=== PATIENT | male | born 1950 | race Caucasian/White ===

== ENCOUNTER 2017-12-15 11:45 | Emergency (ER) | payer OTHER ==
[~2017-12-15] VITALS: Ht 180.3 cm; Wt 69.9 kg
[~2017-12-15 11:45] MED LIST: PERCOT PO; WARF5TAB71 PO
[2017-12-15 12:00] VITALS: BP 135/90
[2017-12-15] MEDS ORDERED: methylPREDNISolone SOD SUCC 125 MG/2 ML VL IM ONE (13:15)
[2017-12-15] MEDS ORDERED: cefTRIAXone SOD 1,000 MG VL IM ONE (13:15)
== END 2017-12-15 13:40 | disposition home or self-care (01) ==
LOC: ER 11:45
DX: J02.9 Acute pharyngitis, unspecified (principal); B37.0 Candidal stomatitis; I25.810 Atherosclerosis of coronary artery bypass graft(s) without angina pectoris; J44.9 Chronic obstructive pulmonary disease, unspecified; E78.5 Hyperlipidemia, unspecified; I10 Essential (primary) hypertension; F17.210 Nicotine dependence, cigarettes, uncomplicated; Z88.5 Allergy status to narcotic agent; Z88.1 Allergy status to other antibiotic agents; Z88.8 Allergy status to other drugs, medicaments and biological substances; Z88.2 Allergy status to sulfonamides; Z79.01 Long term (current) use of anticoagulants; Z79.899 Other long term (current) drug therapy; Z95.1 Presence of aortocoronary bypass graft
CPT/HCPCS: 87070; 87880; 96372; 99284; J0696; J2930

== ENCOUNTER 2019-11-01 13:50 | Inpatient (IN) | payer OTHER ==
[~2019-11-01] VITALS: Ht 177.8 cm; Wt 65.0 kg
[2019-11-01] MEDS ORDERED: IPRATROPIUM BROM 0.5 MG/2.5ML INH SOL HHN ONE (14:15)
[2019-11-01] MEDS ORDERED: ALBUTEROL SULF 2.5 MG/0.5ML(0.5%) NEB SOLN HHN ONE (14:15)
[2019-11-01] MEDS ORDERED: methylPREDNISolone SOD SUCC 125 MG/2 ML VL IV ONE (14:15)
[2019-11-01 14:44] LABS: Basophils # (auto) 0 10 ^3/uL (0-0.2); Basophils % (auto) 0.1 % (0.0-2.0); Eosinophils # (auto) 0 10 ^3/uL (0-0.8); Eosinophils % (auto) 0.1 % (0.0-7.0); Hematocrit 39.5 % (41.0-53.0); Hemoglobin 13.2 g/dL (13.5-17.5); Lymphocytes # (auto) 0.6 10 ^3/uL (0.4-5.4); Lymphocytes % (auto) 6.7 % (10.0-50.0); Mean Corpuscular Hemoglobin 33.1 pg (28.0-32.0); Mean Corpuscular Hgb Conc. 33.5 g/dL (32.0-36.0); Mean Corpuscular Volume 98.8 fL (80.0-100.0); Monocytes # (auto) 0.7 10 ^3/uL (0-1.3); Monocytes % (auto) 7.4 % (0.0-12.0); Neutrophils # (auto) 7.9 10 ^3/uL (1.6-8.6); Neutrophils % (auto) 85.7 % (37.0-80.0); Nucleated Red Blood Cells % 0.1 %; Platelet Count (auto) 283 10^3/uL (140-450); Red Cell Distribution Width 14.9 % (11.8-14.3); White Blood Cell 9.2 10^3/uL (4.4-10.8)
[2019-11-01] MEDS ORDERED: DOXYCYCLINE 100MG/250ML 250 ML IV ONE (14:45)
[2019-11-01 15:24] LABS: Albumin 2.5 g/dL (3.4-5.0); Anion Gap 6 (5-15); Blood Urea Nitrogen 32 mg/dL (7-18); Calcium 8.8 mg/dL (8.5-10.1); Carbon Dioxide 22 mmol/L (21-32); Chloride 107 mmol/L (98-107); Glucose 119 mg/dL (74-106); Magnesium 2.4 mg/dL (1.6-2.6); Potassium 3.9 mmol/L (3.5-5.1); Sodium 135 mmol/L (136-145)
[2019-11-01 15:26] LABS: Lactic Acid w/Reflex 2.6 mmol/L (0.4-2.0)
[2019-11-01 15:30] LABS: Alanine Aminotransferase 22 U/L (16-61); Alkaline Phosphatase 226 U/L (45-117); Aspartate Aminotransferase 18 U/L (15-37); BUN/Creatinine Ratio 22.4; Bilirubin, Total 0.2 mg/dL (0.2-1.0); GFR African American 64 mL/min; GFR Non-African American 53 mL/min; Total Protein 6.6 g/dL (6.4-8.2)
[2019-11-01] MEDS ORDERED: MORPHINE SULF INJ 2 MG/ML SYRINGE 1ML IV PRN ×2 (15:30→17:30)
[2019-11-01] MEDS ORDERED: NITROGLYCERIN 0.4 MG SL TAB SL PRN ×2 (15:30→17:30)
[2019-11-01] MEDS ORDERED: IOHEXOL 350 MG/ML 100ML IJ ONE (16:25)
[2019-11-01] MEDS ORDERED: DOCUSATE SOD 100 MG CAP PO PRN (17:30)
[2019-11-01] MEDS ORDERED: LORazepam 0.5 MG TAB PO PRN (17:30)
[2019-11-01] MEDS ORDERED: ONDANSETRON HCL 4 MG/2 ML VIAL IV PRN (17:30)
[2019-11-01] MEDS ORDERED: ACETAMINOPHEN 325 MG TAB PO PRN (17:30)
[2019-11-01] MEDS ORDERED: VANCOMYCIN PER PHARMACY 0 MG IV SCH (17:30)
[2019-11-01] MEDS ORDERED: ALUM & MAG HYDROX-SIMETH LIQ(MAALOX) 30 ML PO PRN (17:30)
[2019-11-01] MEDS: IPRATROPIUM BROM 0.5 MG/2.5ML INH SOL NEB SCH ×2 (18:00→22:17)
--- NOTE | 2019-11-01 18:20 | NUR ---
Respiratory note: SCHEDULED MED NEB TX HELD AT THIS TIME. PT TO HAVE A BEDSIDE PROCEDURE. WILL RETURN FOR NEXT SCHEDULED MED NEB TX. PT RESTING COMFORTABLY IN BED, WILL CONTINUE TO MONITOR.
[2019-11-01] MEDS: SODIUM CHLORIDE 0.9% 1,000 ML IV SCH (18:21)
[2019-11-01] MEDS ORDERED: MEROPENEM 500MG IVPB 50 ML IV ONE (18:30)
[2019-11-01 18:43] LABS: INR 2.04 (0.9-1.15); Partial Thromboplastin Time 36.7 sec (23.0-31.2)
[2019-11-01 18:57] LABS: Urine Bacteria MOD /hpf (None Seen); Urine Blood 2+ /uL (Negative); Urine Mucus FEW (None Seen); Urine Specific Gravity 1.014 (1.001-1.035); Urine WBC 174 /hpf (0 - 3)
[2019-11-01 18:58] LABS: Amphetamine Screen, Urine NEGATIVE (NEGATIVE); Barbiturate Scree,Urine NEGATIVE (NEGATIVE); Benzodiazephine Screen, Urine NEGATIVE (NEGATIVE); Cannabinoid Screen, Urine NEGATIVE (NEGATIVE); Cocaine Screen, Urine NEGATIVE (NEGATIVE); Opiate Scree,Urine NEGATIVE (NEGATIVE); Phencyclidine Screen, Urine NEGATIVE (NEGATIVE)
[2019-11-01] MEDS ORDERED: VANCOMYCIN 1GM/250ML 250 ML IV ONE (19:00)
[2019-11-01 19:16] LABS: Cholesterol 136 mg/dL (< 200)
[2019-11-01 19:23] LABS: HDL Cholesterol 34 mg/dL (40-59); LDL Cholesterol 89 mg/dL (< 100); Triglycerides 125 mg/dL (< 150)
[2019-11-01] MEDS ORDERED: hydrALAZINE HCL 25 MG TAB PO PRN (19:30)
--- NOTE | 2019-11-01 20:15 | NUR ---
Telemetry admit from RAFITA ZIMMERMAN admitted to Telemetry unit after SBAR received. Patient oriented to ALEXA GRIER RN primary RN, unit, room, bed, and unit policies regarding patient care and visiting hours. Patient now on continuous telemetry monitoring, tele box # 6 and telemetry reading on arrival to unit is Sinus Rhythm at 78BPM. Patient placed on bedside oxygen, weighed by bedscale and encouraged to call if they need something. All questions and concerns addressed, patient verbalized understanding. Patient is alert and oriented, on 2LNC saturating at 92%. Patient requested a sandwich upon arrival to the floor. Patient states he is very weak. Provided patient with ice water, urinal. Bed placed in lowest position, bed alarm turned on and call light within reach.
[2019-11-01] MEDS ORDERED: MEROPENEM 1GM IVPB 100 ML IV ONE (20:58)
[2019-11-01 21:15] VITALS: BP 99/67
[2019-11-01] MEDS: ATORVASTATIN 20 MG TAB PO SCH ×2 (21:53→22:00)
[2019-11-01] MEDS: methylPREDNISolone SOD SUCC 40 MG/ML VL IV SCH (21:53)
[2019-11-01] MEDS: ALBUTEROL SULF 2.5 MG/0.5ML(0.5%) NEB SOLN NEB PRN (22:18)
[2019-11-02] VITALS (8 sets, daily range): BP systolic 99–126; BP diastolic 61–70
[2019-11-02] MEDS: IPRATROPIUM BROM 0.5 MG/2.5ML INH SOL NEB SCH ×6 (01:39→23:25)
--- NOTE | 2019-11-02 04:30 | NUR ---
Photo taken to Sacrum redness. Patient tolerated well
--- NOTE | 2019-11-02 04:47 | NUR ---
In House Covid 19 Swab walked to lab by CORKY Stevens.
[2019-11-02] MEDS: MEROPENEM 1GM IVPB 100 ML IV SCH ×2 (06:20→18:35)
[2019-11-02] MEDS: methylPREDNISolone SOD SUCC 40 MG/ML VL IV SCH ×3 (06:20→22:40)
--- NOTE | 2019-11-02 06:49 | NUR ---
Patient is resting in bed with eyes closed, no distress noted and patient denies pain at this time.
[2019-11-02 07:02] LABS: Basophils # (auto) 0 10 ^3/uL (0-0.2); Basophils % (auto) 0.1 % (0.0-2.0); Eosinophils # (auto) 0 10 ^3/uL (0-0.8); Hematocrit 32.1 % (41.0-53.0); Lymphocytes # (auto) 0.3 10 ^3/uL (0.4-5.4); Lymphocytes % (auto) 4.1 % (10.0-50.0); Mean Corpuscular Hemoglobin 33.5 pg (28.0-32.0); Mean Corpuscular Hgb Conc. 34.2 g/dL (32.0-36.0); Mean Corpuscular Volume 97.7 fL (80.0-100.0); Monocytes # (auto) 0.2 10 ^3/uL (0-1.3); Monocytes % (auto) 2.4 % (0.0-12.0); Neutrophils # (auto) 7.8 10 ^3/uL (1.6-8.6); Neutrophils % (auto) 93.4 % (37.0-80.0); Nucleated Red Blood Cells % 0.1 %; Platelet Count (auto) 227 10^3/uL (140-450); Red Blood Cells 3.28 10^6/uL (4.5-5.90); Red Cell Distribution Width 15.1 % (11.8-14.3); White Blood Cell 8.4 10^3/uL (4.4-10.8)
[2019-11-02 07:11] LABS: INR 2.08 (0.9-1.15)
[2019-11-02 07:20] LABS: BUN/Creatinine Ratio 23.4; Calcium 8.4 mg/dL (8.5-10.1); Potassium 4.1 mmol/L (3.5-5.1)
--- NOTE | 2019-11-02 07:40 | NUR ---
OPENING NOTE ASSUMED CARE OF PT. ALERT AND ORIENTED. NO S/S OF SOB/DISTRESS NOTED. BED SET TO LOWEST POSITION/LOCKED. BEDSIDE RAILS UP X2. BED ALARM ON. CALL LIGHT WITHIN REACH. INSTRUCTED PT TO CALL FOR ASSISTANCE. UPDATED ON POC. WILL CONTINUE TO MONITOR Q1HR AND PRN.
[2019-11-02] MEDS ORDERED: MEROPENEM 500MG IVPB 50 ML IV SCH (10:00)
[2019-11-02] MEDS: SODIUM CHLORIDE 0.9% 1,000 ML IV SCH (10:10)
[2019-11-02] MEDS: HYDROcodone-ACET 5/325MG TAB PO PRN (10:34)
--- NOTE | 2019-11-02 14:09 | NUR ---
REPORT GIVEN AND ENDORSED CARE TO CORKY CLINTON.
--- NOTE | 2019-11-02 14:39 | NUR ---
PATIENT TRANSPORTED TO ROOM 296 A VIA WHEELCHAIR WITH ALL BELONGING.
--- NOTE | 2019-11-02 14:45 | NUR ---
PT ARRIVED IN ROOM 296A FROM COVID UNIT. NO S/S OF DISTRESS OR SOB.
[2019-11-02] MEDS: MORPHINE SULF INJ 2 MG/ML SYRINGE 1ML IV PRN ×2 (15:03→22:48)
[2019-11-02] MEDS ORDERED: IOHEXOL 350 MG/ML 100ML IJ ONE (16:28)
[2019-11-02] MEDS ORDERED: IODIXANOL 320MG/ML 100ML BTL IV ONE (16:44)
--- NOTE | 2019-11-02 18:26 | NUR ---
DAUGHTER WANTS TO SPEAK WITH DR RIKI GARIBAY, REQUESTING MD CALL HER AT [phone]
--- NOTE | 2019-11-02 19:50 | NUR ---
Opening Shift Note Assumed care of patient, awake and alert. No S/S of distress/SOB or pain. Instructed on POC and to call for assist PRN, will continue to monitor for changes Q1hr and PRN.
[2019-11-02] MEDS ORDERED: VANCOMYCIN 750mg/250ml 250 ML IV SCH (21:00)
[2019-11-02] MEDS: ATORVASTATIN 20 MG TAB PO SCH (22:40)
[2019-11-02] MEDS: VANCOMYCIN 750mg/250ml 250 ML IV SCH (23:13)
[2019-11-02] MEDS: ALBUTEROL SULF 2.5 MG/0.5ML(0.5%) NEB SOLN NEB PRN (23:26)
[2019-11-03] MEDS: IPRATROPIUM BROM 0.5 MG/2.5ML INH SOL NEB SCH ×6 (02:00→22:14)
--- NOTE | 2019-11-03 02:27 | NUR ---
AT BEDSIDE FOR MED NEB TX. PT REFUSING TX AT THIS TIME. PT HAD MENTIONED FOR 2200 MED NEB TX POSSIBILITY OF REFUSING 0200 MED NEB TX. NO S/S OF DISTRESS NOTED, WILL CONTINUE TO MONITOR.
[2019-11-03] MEDS: SODIUM CHLORIDE 0.9% 1,000 ML IV SCH ×2 (02:50→20:24)
[2019-11-03 05:00] VITALS: BP 99/60
[2019-11-03] MEDS: MEROPENEM 1GM IVPB 100 ML IV SCH ×3 (05:43→22:45)
[2019-11-03] MEDS: MORPHINE SULF INJ 2 MG/ML SYRINGE 1ML IV PRN ×2 (05:44→20:45)
[2019-11-03] MEDS: methylPREDNISolone SOD SUCC 40 MG/ML VL IV SCH ×3 (05:44→22:46)
[2019-11-03 06:08] LABS: Basophils # (auto) 0 10 ^3/uL (0-0.2); Eosinophils # (auto) 0 10 ^3/uL (0-0.8); Hematocrit 30.3 % (41.0-53.0); Hemoglobin 10.3 g/dL (13.5-17.5); Lymphocytes # (auto) 0.3 10 ^3/uL (0.4-5.4); Mean Corpuscular Hemoglobin 33.4 pg (28.0-32.0); Mean Corpuscular Volume 98.2 fL (80.0-100.0); Monocytes # (auto) 0.3 10 ^3/uL (0-1.3); Monocytes % (auto) 2.3 % (0.0-12.0); Neutrophils # (auto) 13.3 10 ^3/uL (1.6-8.6); Neutrophils % (auto) 95.7 % (37.0-80.0); Platelet Count (auto) 213 10^3/uL (140-450); Red Blood Cells 3.09 10^6/uL (4.5-5.90); Red Cell Distribution Width 14.8 % (11.8-14.3); White Blood Cell 13.9 10^3/uL (4.4-10.8)
--- NOTE | 2019-11-03 08:00 | NUR ---
Opening Shift Note Assumed care of patient, awake and alert and oriented x4. No S/S of distress/SOB. Instructed on POC and to call for assist PRN, will continue to monitor for changes Q1hr and PRN.
[2019-11-03 09:00] VITALS: BP 111/63
--- NOTE | 2019-11-03 09:59 | NUR ---
Respiratory note: ROOM AIR ABG ORDERED BY DR. LYN. SPO2 WAS 95% ON ROOM AIR. ABG NOT DRAWN AT THIS TIME. PT REMAINS OFF O2.
[2019-11-03] MEDS: ALBUTEROL SULF 2.5 MG/0.5ML(0.5%) NEB SOLN NEB PRN ×4 (10:29→22:14)
[2019-11-03] MEDS: HYDROcodone-ACET 5/325MG TAB PO PRN (11:03)
[2019-11-03 13:00] VITALS: BP 111/66
--- NOTE | 2019-11-03 13:32 | NUR ---
ATTEMPTED TO CALL PATHOLOGY FOR REPORT. NO ANSWER AT THIS TIME. WILL ATTEMPT AGAIN.
--- NOTE | 2019-11-03 14:47 | NUR ---
PATIENT STATES THAT HE IS "SHORT OF BREATH AND CAN'T BREATH." RT PAGED FOR TREATMENT. PATIENT CURRENTLY ON 2 LPM NC, O2 SATS 94% AT THIS TIME.
--- NOTE | 2019-11-03 15:00 | NUR ---
PT DECLINED P.T. BECAUSE OF SHORTNESS OF BREATH.
--- NOTE | 2019-11-03 15:07 | NUR ---
SPOKE WITH FAMILY AND UPDATED ON PLAN OF CARE AT THIS TIME.
--- NOTE | 2019-11-03 16:15 | NUR ---
Assessment Patient is a 68-year-old male who is alert and oriented. Prior to admission patient lived home with his Awa and functioned with assistance. Per patient his helps him with his ADLs. Per patient he will return home to his prior living arrangements post discharge and family will transport him home. Advised patient there is a social service consult for home health safety evaluation and nebulizer. Per patient he has a walker, wheelchair and nebulizer for home use. Informed patient he has the right to participate in all discharge planning. Patient verbalized understanding and agreed to discharge plan. Faxed clinical information to [facility]. Per Daisy with [facility] patient has been accepted and service to start within 24-48hrs upon d/c day. Addendum: 11/03/19 at 1616 by JESSIE BALLESTEROS Amended: Links added.
[2019-11-03 17:00] VITALS: BP 104/74
--- NOTE | 2019-11-03 17:49 | NUR ---
PATIENT SLEEPING COMFORTABLY. NO S/S OF DISTRESS AT THIS TIME.
--- NOTE | 2019-11-03 18:51 | NUR ---
End of Shift Pt. resting comfortably, no s/s of distress. Endorsed care to NOC shift nurse.
--- NOTE | 2019-11-03 19:50 | NUR ---
Opening Shift Note Assumed care of patient. Awake, alert and oriented x4. No S/S of distress or pain at this time. Pt is on 3L nasal cannula and says he feels SOB. Pulse ox assessed at 99%. Instructed pt to take things slowly and to call if breathing treatment is needed. Bed locked, in lowest position, call light within reach, side rails up x2. Instructed on POC and to call for assist PRN. Will continue to monitor for changes Q1hr and PRN.
[2019-11-03] MEDS: ATORVASTATIN 20 MG TAB PO SCH (22:00)
[2019-11-03 22:01] VITALS: BP 109/71
[2019-11-03] MEDS: VANCOMYCIN 750mg/250ml 250 ML IV SCH (23:33)
--- NOTE | 2019-11-04 01:49 | NUR ---
Placed call to pathology No answer. Will attempt again at a later time
[2019-11-04] MEDS: IPRATROPIUM BROM 0.5 MG/2.5ML INH SOL NEB SCH ×6 (02:00→23:04)
--- NOTE | 2019-11-04 02:10 | NUR ---
Respiratory note: PT REFUSED MED NEB TX AT THIS TIME STATING HE WANTED TO SLEEP. NO S/S OF ANY DISTRESS NOTED. ADVISED PT TO CALL IF TX IS NEEDED.
[2019-11-04 05:00] VITALS: BP 120/70
[2019-11-04] MEDS: MEROPENEM 1GM IVPB 100 ML IV SCH ×3 (05:59→21:39)
[2019-11-04] MEDS: methylPREDNISolone SOD SUCC 40 MG/ML VL IV SCH ×3 (06:00→21:40)
[2019-11-04] MEDS: HYDROmorphone HCL 2 MG/ML VL IV PRN ×2 (08:30→21:53)
[2019-11-04 08:54] VITALS: BP 109/80
--- NOTE | 2019-11-04 09:30 | NUR ---
PHONED PATHOLOGY AND LEFT MESSAGE TO CALL ME BACK REGARDING CYTOLOGY RESULT.
--- NOTE | 2019-11-04 10:30 | NUR ---
TALKED TO PATHOLOGY, VALE BY PHONE AND SHE STATED THAT THERE WAS NO RECORD OF SPECIMEN FOR CYTOLOGY FROM PLEURAL FLUIDS FROM [facility] BUT SHE WILL CHECK WITH LAB FOR THE SPECIMEN.
--- NOTE | 2019-11-04 10:40 | NUR ---
PATHOLOGY CALLED ME BACK AND STATED THAT LABORATORY HAD THE SPECIMEN BUT THE PATHOLOGY FORM WAS NOT FILLED UP AND WILL SEND FORM TO BE FILLED.
--- NOTE | 2019-11-04 10:50 | NUR ---
LEFT MESSAGE TO DR. LYN BY PHONE TO RETURN CALL [facility] ASKING ABOUT [facility] ORDER.
--- NOTE | 2019-11-04 11:00 | NUR ---
DR. LYN CALLED BACK AND INFORMED MD ABOUT THE CYTOLOGY RESULT NOT AVAILABLE SPECIMEN HAS NOT BEEN SENT YET AND CONCERN ABOUT PATIENT'S INR 2.08. MD STATED TO HOLD [facility] AT THIS TIME AND WAIT FOR CYTOLOGY RESULT. MD ALSO LEFT NEW ORDERS.
[2019-11-04] MEDS ORDERED: PHYTONADIONE (VIT K)10 MG/ML 1ML VIAL SUBCUT ONE (11:30)
--- NOTE | 2019-11-04 11:30 | NUR ---
PATIENT VERY UPSET THAT HE HAD TO STAY HERE FOR SEVERAL MORE DAYS BECAUSE THE PLEURAL FLUID SPECIMEN HAD NOT BEEN SENT YET. WANTED TO TALK TO PATIENT ADVOCATE. IVONNE WHITAKER RN MADE AWARE OF PATIENT'S COMPLAINT AND PATIENT FORWARDED TO [facility] BY PHONE.
[2019-11-04 12:48] VITALS: BP 105/88
[2019-11-04 15:13] LABS: INR 1.37 (0.9-1.15); Partial Thromboplastin Time 27.3 sec (23.0-31.2)
[2019-11-04 17:03] VITALS: BP 119/71
--- NOTE | 2019-11-04 18:20 | NUR ---
DR. CALDWELL WAS IN AND NOTIFIED ABOUT THE PLEURAL FLUID SPECIMEN CYTOLOGY RESULT NOT AVAILABLE AT THIS TIME. MENTIONED TO MD TO SEE PATIENT PATIENT WAS C/O NOT BEING SEEN BY ANY MD. DR. CALDWELL STATED THAT HE TALKED TO PATIENT YESTERDAY ABOUT HIS CONDITION AND PLAN OF CARE.
[2019-11-04] MEDS: ALBUTEROL SULF 2.5 MG/0.5ML(0.5%) NEB SOLN NEB PRN ×2 (19:18→23:04)
--- NOTE | 2019-11-04 19:45 | NUR ---
Dr. Allred at bedside to perform thoracentesis
[2019-11-04] MEDS: SODIUM CHLORIDE 0.9% 1,000 ML IV SCH (21:39)
[2019-11-04] MEDS: ATORVASTATIN 20 MG TAB PO SCH (21:40)
[2019-11-04 22:00] VITALS: BP 109/74
[2019-11-04] MEDS: VANCOMYCIN 750mg/250ml 250 ML IV SCH (23:15)
[2019-11-05] MEDS: IPRATROPIUM BROM 0.5 MG/2.5ML INH SOL NEB SCH ×4 (02:00→13:58)
--- NOTE | 2019-11-05 02:05 | NUR ---
Respiratory note: PT REFUSED HIS 0200 SCHEDULED MED NEB TX AT THIS TIME. PT STATED HE DID NOT WANT TO BE WOKEN UP IF HE WAS SLEEPING. WHEN ENTERING THE ROOM HE WAS INDEED SLEEPING. NO DISTRESS NOTED.
[2019-11-05 04:59] VITALS: BP 122/82
[2019-11-05] MEDS: ALBUTEROL SULF 2.5 MG/0.5ML(0.5%) NEB SOLN NEB PRN ×2 (06:18→11:13)
[2019-11-05] MEDS: SODIUM CHLORIDE 0.9% 1,000 ML IV SCH (06:19)
[2019-11-05] MEDS: MEROPENEM 1GM IVPB 100 ML IV SCH ×2 (06:19→15:16)
[2019-11-05] MEDS: methylPREDNISolone SOD SUCC 40 MG/ML VL IV SCH ×2 (06:20→15:16)
--- NOTE | 2019-11-05 06:48 | NUR ---
PLACED PT ON CONTINUOUS BEDSIDE POX MONITOR ORDERED, PLUGGED INTO RED OUTLET. SPO2 95% ON 3LPM NASAL CANNULA. ALARMS SET AND AUDIBLE. NO S/S OF DISTRESS.
--- NOTE | 2019-11-05 07:20 | NUR ---
OPENING SHIFT NOTES Assumed care of patient from nightman RN. Patient is alert and oriented x4, patient complaining of back pain 08/14, will medicate as ordered. He was updated on the plan of care and verbalized understanding. Patient is on oxygen at 3L/min via nasal cannula, oxygen saturation is at 95%. Bed is locked, in the lowest position, side rails upx2 and call light is in reach. Patient was encouraged to call for assistance as needed.
[2019-11-05] MEDS: HYDROmorphone HCL 2 MG/ML VL IV PRN (08:33)
[2019-11-05 08:59] VITALS: BP 100/54
--- NOTE | 2019-11-05 09:11 | NUR ---
CALLED PAULETTE WITH THE RESULTS FOR CHEST XRAY. VERBAL COMMUNICATION ORDER FOR STAT CHEST X RAY AND ABG IF THE PATIENT IS EXPERIENCING RESPIRATORY DISTRESS.
[2019-11-05 10:24] LABS: Basophils # (auto) 0 10 ^3/uL (0-0.2); Eosinophils # (auto) 0 10 ^3/uL (0-0.8); Hematocrit 32.9 % (41.0-53.0); Hemoglobin 10.8 g/dL (13.5-17.5); Lymphocytes # (auto) 0.3 10 ^3/uL (0.4-5.4); Lymphocytes % (auto) 2.3 % (10.0-50.0); Mean Corpuscular Hemoglobin 32.2 pg (28.0-32.0); Mean Corpuscular Hgb Conc. 32.7 g/dL (32.0-36.0); Mean Corpuscular Volume 98.4 fL (80.0-100.0); Monocytes # (auto) 0.3 10 ^3/uL (0-1.3); Neutrophils # (auto) 11.1 10 ^3/uL (1.6-8.6); Neutrophils % (auto) 94.7 % (37.0-80.0); Nucleated Red Blood Cells % 0.1 %; Platelet Count (auto) 211 10^3/uL (140-450); Red Blood Cells 3.34 10^6/uL (4.5-5.90); Red Cell Distribution Width 15.4 % (11.8-14.3); White Blood Cell 11.7 10^3/uL (4.4-10.8)
[2019-11-05 10:48] LABS: Potassium 4.2 mmol/L (3.5-5.1)
[2019-11-05 10:52] LABS: BUN/Creatinine Ratio 31.4; Calcium 8.5 mg/dL (8.5-10.1); Magnesium 2.1 mg/dL (1.6-2.6); Phosphorus 2.8 mg/dL (2.5-4.90)
--- NOTE | 2019-11-05 11:30 | NUR ---
CALL FROM RIKI He was updated on the patient status. Verbal order to titrate oxygen and PT eval. Order read back and verified.
[2019-11-05 11:53] VITALS: BP 109/64
--- NOTE | 2019-11-05 13:28 | NUR ---
Message left for pathology regarding patient cytology results, awaiting call back.
[2019-11-05 14:05] VITALS: BP_SYST 109
--- NOTE | 2019-11-05 14:55 | NUR ---
Nutrition Assessment Notes Please refer to link for full assessment notes. Est Energy needs: [id number] kcals (23-25 kcal/kgBW) Est Protein needs: 65-72 gms/day (1.0-1.1 gm/kgBW) Will continue to monitor and reassess prn. Addendum: 11/05/19 at [address] Amended: Links added.
--- NOTE | 2019-11-05 15:04 | NUR ---
CALLED PATHOLOGY regarding cytology results. Per Rita cytology is sent out and results will take 3 days, earliest will be Sunday.
--- NOTE | 2019-11-05 16:03 | NUR ---
CALL FROM RIKI updated on the patient status and that the cytology results would not be in until Sunday. No new orders received.
--- NOTE | 2019-11-05 16:05 | NUR ---
CALL FROM RIKI updated on patient status. New orders for stat chest xray and social science professor consult for 2L home O2. Orders read back and verified.
--- NOTE | 2019-11-05 16:23 | NUR ---
FAX SENT TO [facility] with the Home O2 order.
--- NOTE | 2019-11-05 16:26 | NUR ---
D/C Planning Per social service consult for home oxygen. Faxed clinical information to [facility] requesting for oxygen to be deliver to front lobby and concentrate oxygen to home . Informed RN Hilda.
[2019-11-05] MEDS ORDERED: ALBU0.5N2 IN (16:28)
[2019-11-05 16:39] VITALS: BP 115/79
[2019-11-05] MEDS ORDERED: VANCOMYCIN 750mg/250ml 250 ML IV SCH (17:00)
--- NOTE | 2019-11-05 17:04 | NUR ---
[id number] 11/05/19 Faxed to [facility] at [phone], face sheet, order for home oxygen 2L NC, discharge summary, H/P, ALYSSIA's. Spoke with Keeley case sealer at [facility] who stated she will inform the [facility] authorization team of pending order. I will fax order for home oxygen to [facility] contracted with [facility]. Addendum: 11/05/19 at 3030 by Noelle Crouch RN [id number] 11/05/19 - contact numbers for [facility] are [phone] with fax number [phone]
--- NOTE | 2019-11-05 17:25 | NUR ---
MESSAGE LEFT FOR RIKI regarding chest xray results, awaiting call back.
--- NOTE | 2019-11-05 17:26 | NUR ---
CALLED PAULETTE To inform him of chest xray results. Per MD patient is stable for discharge with supplemental oxygen.
[2019-11-05 17:48] VITALS: BP 115/79
--- NOTE | 2019-11-05 19:07 | NUR ---
DISCHARGE Discharge instructions given as ordered. Encourage to follow up with PMD as instructed. All questions and concerns addressed. Patient verbalized understanding. Medication reconciliation form completed and copy given to patient. IV removed with catheter intact, pressure dressing applied, Telemetry unit returned to ICU. Patient taken to vehicle via wheelchair with all personal belongings, accompanied by staff. PORTABLE O2 TAKEN WITH THE PATIENT. No distress noted at time of departure.
== END 2019-11-05 19:07 | disposition home health service (06) | DRG 186 ==
LOC: EDBD 13:50 → ER 13:50 → TELE 13:51 → TELE-EAST 20:15 → TELE-WESTW 11-02 14:43
PROVIDERS: ADMIT Hospitalist; ATTEND Hospitalist
PROC: 0W9B3ZZ Drainage of Left Pleural Cavity, Percutaneous Approach (ICD-10-PCS; principal; 2019-11-01)
PROC: 0W9B3ZZ Drainage of Left Pleural Cavity, Percutaneous Approach (ICD-10-PCS; 2019-11-04)
DX: J90 Pleural effusion, not elsewhere classified (principal); J18.9 Pneumonia, unspecified organism; J96.01 Acute respiratory failure with hypoxia; E87.1 Hypo-osmolality and hyponatremia; J98.11 Atelectasis; Z20.828 Contact with and (suspected) exposure to other viral communicable diseases; I10 Essential (primary) hypertension; D64.9 Anemia, unspecified; I25.10 Atherosclerotic heart disease of native coronary artery without angina pectoris; E78.5 Hyperlipidemia, unspecified; F17.210 Nicotine dependence, cigarettes, uncomplicated; I27.20 Pulmonary hypertension, unspecified; J43.9 Emphysema, unspecified; Z91.81 History of falling; Z88.1 Allergy status to other antibiotic agents; Z95.1 Presence of aortocoronary bypass graft; Z86.718 Personal history of other venous thrombosis and embolism; Z88.8 Allergy status to other drugs, medicaments and biological substances; Z88.0 Allergy status to penicillin; Z88.5 Allergy status to narcotic agent; Z88.2 Allergy status to sulfonamides
CPT/HCPCS: 32555; 36415; 36600; 71045; 71275; 72100; 76604; 76942; 80048; 80053; 80061; 80202; 80307; 81001; 82565; 82805; 83036; 83605; 83735; 83880; 84100; 84484; 85025; 85610; 85730; 87040; 87086; 87205; 87426; 89051; 93005; 94640; 94762; 96365; 96366; 96375; G0378; J2185; J3430; J3490; Q9967